=== PATIENT | female | born 1965 | race Caucasian/White ===

== ENCOUNTER 2019-10-26 14:02 | Outpatient (CLI) | payer OTHER, SELFPAY ==
--- NOTE | ~2019-10-26 | CT_ITS ---
EXAMINATION: CT abdomen pelvis w con DATE: 10/26/2019 14:33 INDICATION: Abdominal pain. Splenic laceration. TECHNIQUE: Computed tomography (CT) of the abdomen and pelvis was performed with 100 mL Omnipaque-350 intravenous contrast. Automated exposure control and iterative reconstruction technique were employe d. The dose-length product was 372.68 mGy-cm. COMPARISON: 08/30/2008 FINDINGS: Mild discoid atelectasis at the right lower lobe. Heart size is normal. No pericardial or pleural eff usion. Liver, gallbladder, pancreas, bilateral adrenal glands and kidneys are normal. There is a large splenic subcapsular hematoma which measures 11.5 x 11.5 x 7.3 cm there are couple la cerations along the spleen the more anterior measuring 2.0 cm in depth and the posterior laceration m easuring 1.4 cm in depth consistent with provided history of prior grade 2 splenic injury which was r eportedly treated with splenic artery branch embolization. The spleen enhances homogeneously with no evident active contrast extravasation identified. There is an approximately 7.9 x 6.2 x 5.3 cm collec tion of hemoperitoneum in the posterior pelvis. No abnormal bowel wall thickening or obstruction. Appendix is normal. Bladder is normal. The uterus i s not identified and has likely been surgically resected. No pathologically enlarged abdominal or pel melissa lymphadenopathy. Mild lumbar levocurvature with mild to moderate spondylosis. IMPRESSION: 1. Grade 2 splenic injury with a couple lacerations measuring up to 2 cm in depth and large subcapsul ar hematoma but without evident active extravasation. 2. Small amount of likely secondary hemoperitoneum. 3. Dr. Milan discussed these findings with Dr. Bettie Richardson at 2:40 PM. Reviewed, dictated and finalized at location A. IMPRESSION: 1. Grade 2 splenic injury with a couple lacerations measuring up to 2 cm in dep th and large subcapsular hematoma but without evident active extravasation. 2. Small amount of likely secondary hemoperitoneum. 3. Dr. Milan discussed these findings with Dr. Bettie Richardson at 2:40 PM.
== END 2019-10-26 14:03 | disposition home or self-care (01) ==
PROVIDERS: PCP Family Medicine; Visit Provider Family Medicine
DX: S36.039A Unspecified laceration of spleen, initial encounter (principal); R10.9 Unspecified abdominal pain
CPT/HCPCS: 74177; Q9967

== ENCOUNTER 2020-06-01 10:12 | Outpatient (CLI) | payer OTHER, SELFPAY ==
[2020-06-01 10:44] LABS: Basophils Absolute Auto 0.1 K/mm3 (0.0-0.1); Basophils Percent Auto 0.7 % (0.2-1.2); Eosinophils Absolute Auto 0.1 K/mm3 (0-0.3); Eosinophils Percent Auto 1.1 % (0-4.4); Hematocrit 47.6 % (37.0-47.0); Hemoglobin 15.6 g/dL (12.0-15.0); Lymphocytes Absolute Auto 2.78 K/mm3 (0.9-3.2); Lymphocytes Percent Auto 39.9 % (18.3-44.2); Mean Corpuscular HGB Conc 32.8 g/dl (32-36); Mean Corpuscular Hemoglobin 30.2 pg (26-34); Mean Corpuscular Volume 92.2 fl (80-100); Mean Platelet Volume 9.6 fl (7.4-10.4); Monocytes Absolute Auto 0.3 K/mm3 (0.1-0.6); Monocytes Percent Auto 4.7 % (2.6-8.5); Neutrophils Absolute Auto 3.7 K/mm3 (1.3-6.7); Neutrophils Percent Auto 53.6 % (45.5-73.1); Platelet Count Result 249 k/mm3 (150-375); Red Blood Count 5.16 M/mm3 (4.2-5.4); Red Cell Distribution Width 13.5 % (11.5-14.5)
[2020-06-01 11:00] LABS: Alanine Aminotransferase 13 U/L (4-35); Albumin Level 4.1 g/dL (3.5-5.1); Alkaline Phosphatase 62 U/L (38-126); Anion Gap 2 mmol/L (8-16); Aspartate Amino Transferase 24 U/L (14-36); Bilirubin,Total 0.3 mg/dL (0.2-1.3); Blood Urea Nitrogen 12 mg/dL (7-17); Calcium 9.1 mg/dL (8.4-10.2); Carbon Dioxide 31 mmol/L (22-30); Chloride 106 mmol/L (98-107); Estimated Glomerular Filt Rate > 60; Glucose 99 mg/dL (65-105); Magnesium 1.9 mg/dL (1.6-2.3); Phosphorus 3.8 mg/dL (2.5-4.5); Potassium 4.7 mmol/L (3.4-5.0); Sodium 139 mmol/L (137-145)
== END 2020-06-01 10:13 | disposition home or self-care (01) ==
PROVIDERS: Family Provider Family Medicine; PCP Family Medicine; Visit Provider Nurse Practitioner
DX: R00.2 Palpitations (principal)
CPT/HCPCS: 36415; 80053; 83735; 84100; 85025

== ENCOUNTER 2020-08-06 13:23 | Outpatient (CLI) | payer OTHER, SELFPAY ==
--- NOTE | 2020-08-06 13:27 | ECHO_ITS ---
Patient Info Name: Lili Rivera Age: 54 years : 1965 Gender: Female Ht: 70 in Wt: 165 lbs BSA: 1.93 m2 HR: 70 bpm BP: 111 / 73 mmHg Technical Quality: Good Exam Date: 08/06/2020 1:39 PM Exam Location: [facility] Patient Status: Outpatient Admit Date: 08/06/2020 Staff Ordering Physician: Christ Choi DO Take Away Man: Dhara Reyna RDCS Attending Provider: Christ Choi DO Referring Physician: Jimbo RIVERA; Exam Type: CA echo doppler color flow Study Info Indications R06.00 - Dyspnea, unspecified Complete two-dimentional, color flow and Doppler transthoracic echocardiogram is performed with agitated saline and with contrast to opacify the left ventricle and to improve the delineation of the left ventricle endocardial borders. Summary 1. Left ventricular chamber dimension is normal. 2. Left ventricular systolic function is normal, estimated at 60-65%. 3. The left ventricular diastolic function is grade II diastolic dysfunction. 4. E/e' 7 is not elevated. 5. Global longitudinal strain is normal at -19.9%. 6. No pulmonary hypertension, estimated pulmonary arterial systolic pressure is 17 mmHg. 7. There is trace pulmonic regurgitation. Left Ventricle E/e' 7 is not elevated. Global longitudinal strain is normal at -19.9%. Left ventricular chamber dimension is normal. Left ventricular systolic function is normal, estimated at 60-65%. The left ventricular diastolic function is grade II diastolic dysfunction. Right Ventricle Right ventricular chamber dimension is normal. Right ventricular systolic function is normal. Left Atria Left atrial chamber dimension is normal. Right Atria Right atrial chamber dimension is normal. Aortic Valve The aortic valve is trileaflet. There is no aortic valve stenosis. There is no aortic valve regurgitation. Pulmonic Valve There is trace pulmonic regurgitation. Mitral Valve There is no mitral valve stenosis. There is no mitral valve regurgitation. Tricuspid Valve There is no tricuspid valve regurgitation. No pulmonary hypertension, estimated pulmonary arterial systolic pressure is 17 mmHg. Pericardium/Pleural There is no pericardial effusion. Inferior Vena Cava Normal inferior vena cava with >50% collapse upon inspiration consistent with normal right atrial pressure, 5 mmHg. Aorta The aortic root size at the sinus of Valsalva is normal. Left Ventricular Outflow Tract Name Value Normal LVOT 2D LVOT Diameter 2.0 cm LVOT Doppler LVOT Peak Gradient 5 mmHg LVOT Mean Gradient 3 mmHg LVOT VTI 23 cm LVOT VTI/AV VTI Ratio 0.9 LVOT Stroke Volume 68 ml LVOT CO 5.2 l/min LVOT CI 2.7 l/min/m2 Pulmonic Valve Name Value Normal RVOT Doppler
== END 2020-08-06 13:24 | disposition home or self-care (01) ==
LOC: ANHCARD 13:25
PROVIDERS: PCP Family Medicine; Visit Provider Internal Medicine Cardiovascular Disease
DX: R06.00 Dyspnea, unspecified (principal)
CPT/HCPCS: 93306

== ENCOUNTER 2021-01-16 14:48 | Outpatient (CLI) | payer OTHER, SELFPAY ==
--- NOTE | ~2021-01-16 | MM_ITS ---
EXAMINATION: MM screening danuta BI w daniel HISTORY: Screening TECHNIQUE: Craniocaudal and mediolateral oblique 3-D tomosynthesis images were obtained and synthetic 2-D images were generated. CAD analysis was submitted and interpreted. COMPARISON: No prior mammogram is available for comparison at this institution. BREAST PARENCHYMAL COMPOSITION: There are scattered areas of fibroglandular density. FINDINGS: There is no evidence of suspicious mass, calcification, or architectural distortion to sugg est malignancy in either breast. There has been no suspicious interval change. IMPRESSION: 1. No mammographic evidence of malignancy. 2. Recommend routine screening mammography in one year. BI-RADS Category 1: Negative Reviewed, dictated and finalized at location A.
== END 2021-01-16 14:49 | disposition home or self-care (01) ==
LOC: ANHIMG 14:49
PROVIDERS: PCP Family Medicine; Visit Provider Family Medicine
DX: Z12.31 Encounter for screening mammogram for malignant neoplasm of breast (principal)
CPT/HCPCS: 77063; 77067

== ENCOUNTER 2021-09-26 12:35 | Outpatient (CLI) | payer OTHER, SELFPAY ==
--- NOTE | ~2021-09-26 | XR_ITS ---
EXAMINATION: XR shoulder LT min 2V DATE: 09/26/2021 13:07 INDICATION: Left shoulder pain. TECHNIQUE: 4 views of left shoulder were obtained. COMPARISON: None. FINDINGS: Bone alignment is normal. No fracture. There is mild osteoarthritis of glenohumeral joint a nd acromioclavicular joint characterized by tiny osteophytes. IMPRESSION: 1. Mild polyarticular osteoarthritis. Reviewed, dictated and finalized at location A.
[2021-09-26 13:36] LABS: Basophils Percent Auto 0.6 % (0.2-1.2); Eosinophils Absolute Auto 0.1 K/mm3 (0-0.3); Hematocrit 50.8 % (37.0-47.0); Immature Granulocyte Absolute 0.01 K/mm3 (0.00-0.031); Immature Granulocyte Percent A 0.1 % (0-0.5); Lymphocytes Absolute Auto 2.78 K/mm3 (0.9-3.2); Lymphocytes Percent Auto 38.6 % (18.3-44.2); Mean Corpuscular HGB Conc 33.5 g/dl (32-36); Mean Corpuscular Hemoglobin 30.9 pg (26-34); Mean Corpuscular Volume 92.4 fl (80-100); Mean Platelet Volume 9.6 fl (7.4-10.4); Monocytes Absolute Auto 0.4 K/mm3 (0.1-0.6); Monocytes Percent Auto 4.9 % (2.6-8.5); Neutrophils Percent Auto 54.8 % (45.5-73.1); Platelet Count Result 244 k/mm3 (150-375); Red Cell Distribution Width 13.3 % (11.5-14.5); White Blood Count 7.2 K/mm3 (4.5-10.0)
[2021-09-26 13:51] LABS: Alanine Aminotransferase 15 U/L (6-35); Albumin Level 4.4 g/dL (3.5-5.1); Alkaline Phosphatase 58 U/L (38-126); Anion Gap 4 mmol/L (8-16); Aspartate Amino Transferase 21 U/L (14-36); Bilirubin,Total 0.3 mg/dL (0.2-1.3); Blood Urea Nitrogen 10 mg/dL (7-17); Calcium 8.9 mg/dL (8.4-10.2); Carbon Dioxide 30 mmol/L (22-30); Chloride 104 mmol/L (98-107); Estimated Glomerular Filt Rate > 60; Glucose 103 mg/dL (65-110); HDL Direct 54 mg/dL; Potassium 3.8 mmol/L (3.4-5.0); Sodium 138 mmol/L (137-145); Triglycerides 430 mg/dL (<150); Triglycerides 437 mg/dL (<150)
[2021-09-26 14:00] LABS: LDL Cholesterol Direct 274 mg/dL
[2021-09-26 14:01] LABS: LDL Cholesterol Direct 268 mg/dL
[2021-09-26 14:14] LABS: Hemoglobin A1C 5.5 % (<5.7)
[2021-09-26 14:17] LABS: Microalbumin Urine Random 23.2 mg/L (0-16.7)
[2021-09-26 14:18] LABS: Creatinine Urine 314.9 mg/dL; MALB Creatinine Ratio 7.4 mg/g (0-30)
[2021-09-26 14:19] LABS: Total Triiodothyronine (T3) 1.09 NG/ML (0.97-1.69)
[2021-09-26 14:55] LABS: Free T4 Free Thyroxine 1.04 ng/mL (0.78-2.19); Vitamin D 25 Hydroxy 26.6 ng/mL
[2021-09-26 16:01] LABS: Cholesterol 458 mg/dL (0-200)
[2021-09-26 17:57] LABS: Cholesterol 441 mg/dL (0-200)
== END 2021-09-26 12:36 | disposition home or self-care (01) ==
PROVIDERS: PCP Family Medicine; Visit Provider Internal Medicine Cardiovascular Disease
DX: M19.012 Primary osteoarthritis, left shoulder (principal); M75.100 Unspecified rotator cuff tear or rupture of unspecified shoulder, not specified as traumatic; K21.9 Gastro-esophageal reflux disease without esophagitis; J44.9 Chronic obstructive pulmonary disease, unspecified; K90.0 Celiac disease; Z00.00 Encounter for general adult medical examination without abnormal findings; Z13.0 Encounter for screening for diseases of the blood and blood-forming organs and certain disorders involving the immune mechanism; Z13.6 Encounter for screening for cardiovascular disorders; Z13.220 Encounter for screening for lipoid disorders; Z13.29 Encounter for screening for other suspected endocrine disorder; Z13.1 Encounter for screening for diabetes mellitus; R80.9 Proteinuria, unspecified; E55.9 Vitamin D deficiency, unspecified
CPT/HCPCS: 36415; 73030; 80053; 80061; 82043; 82306; 83036; 84439; 84443; 84480; 85025

== ENCOUNTER 2021-10-07 13:20 | Outpatient (CLI) | payer OTHER, SELFPAY ==
--- NOTE | ~2021-10-07 | CT_ITS ---
CT OF LEFT SHOULDER EXAMINATION: CT shoulder LT wo con DATE: 10/07/2021 13:45 INDICATION: Left shoulder pain/injury. TECHNIQUE: Computed tomography (CT) of the left shoulder was performed without intravenous contrast. Automated exposure control and iterative reconstruction technique were employed. The dose-length prod uct was 369.16 mGy-cm. COMPARISON: X-ray left shoulder 09/26/2021 FINDINGS: Limitations: None Bones: No fracture or dislocation. Glenohumeral joint space narrowing with subchondral sclerosis. Mil d superior migration of the humeral head as can be seen with rotator cuff pathology. Slightly curved acromial undersurface (type II). Benign humeral head bone island. Soft Tissues:The soft tissues appear within normal limits. No evidence of mass or fluid collection. Fluid: No significant fluid within the joint capsule or surrounding bursal spaces. IMPRESSION: Mild glenohumeral osteoarthritis. Superior humeral head migration suggests rotator cuff pathology. Reviewed, dictated and finalized at location K. IMPRESSION: Mild glenohumeral osteoarthritis. Superior humeral head migration suggests rota tor cuff pathology.
== END 2021-10-07 13:21 | disposition home or self-care (01) ==
LOC: ANHIMG 13:22
PROVIDERS: PCP Family Medicine; Visit Provider Nurse Practitioner Adult Health
DX: M19.012 Primary osteoarthritis, left shoulder (principal)
CPT/HCPCS: 73200

== ENCOUNTER 2021-11-26 16:24 | Outpatient (CLI) | payer OTHER, SELFPAY ==
--- NOTE | ~2021-11-26 | MR_ITS ---
EXAMINATION: MR shoulder LT wo con DATE: 11/26/2021 18:03 INDICATION: Left shoulder pain TECHNIQUE: Magnetic resonance imaging (MRI) of the left shoulder was performed without intravenous co ntrast. Sequences included axial PD-weighted FS FSE, coronal oblique PD-weighted FS FSE, coronal obli que T2-weighted FS FSE, sagittal PD-weighted FS FSE, and sagittal T1-weighted SE. COMPARISON: Left shoulder CT dated 10/07/2021 FINDINGS: Coracoacromial arch: The acromion undersurface is curved in morphology (type II). The coracoacromial ligament is normal. M ild acromioclavicular osteoarthritis. Rotator cuff: Mild tendinopathy of the distal supraspinatus tendon without tear. The infraspinatus, teres minor and subscapularis tendons are normal. Normal rotator cuff muscle bulk and signal. Biceps tendon, glenoid labrum and glenohumeral cartilage: Long head of the biceps tendon is normal. Glenoid labrum is normal. There is partial thickness cartil age loss with smooth chondral surface involving the cephalad half of the glenoid. Humeral head cartil age is normal. Fluid: Physiologic amount of fluid in the glenohumeral joint and biceps tendon sheath. No loose osteochondr al bodies. No abnormal fluid signal in the subacromial/subdeltoid bursa to suggest bursitis. Bones: Small low signal intensity sclerotic bone island at the humeral head. Marrow signal is otherwise norm al. No fracture or pathologic marrow replacing process. IMPRESSION: 1. Mild supraspinatus tendinopathy without tear. 2. Mild left glenohumeral and acromioclavicular osteoarthritis. Reviewed, dictated and finalized at location A.
== END 2021-11-26 16:25 | disposition home or self-care (01) ==
PROVIDERS: PCP Family Medicine; Visit Provider Nurse Practitioner Adult Health
DX: M75.102 Unspecified rotator cuff tear or rupture of left shoulder, not specified as traumatic (principal); M19.012 Primary osteoarthritis, left shoulder
CPT/HCPCS: 73221

== ENCOUNTER 2022-06-11 16:32 | Emergency (ER) | payer OTHER, SELFPAY ==
[2022-06-11 16:36] VITALS: BP 108/62; PULSE 88; RESP 20; TEMP 36.6; O2SAT 95
--- NOTE | 2022-06-11 16:36 | ED.SKABFB ---
HPI - Skin/Abscess/Foreign Bdy General Chief complaint: Skin/Abscess/Foreign Body Stated complaint: Skin Problem Time Seen by Provider: 06/11/22 16:42 Source: patient and RN notes reviewed Mode of arrival: ambulatory Limitations: no limitations History of Present Illness HPI narrative: 56-year-old female presents concern for painful in itchy rash that starts on her low back and goes around her flank. She reports she noticed the rash yesterday. Reports there is some scabbing that had some clear drainage. She denies any other area rash. MD complaint: rash Related Data Home Medications Medication Instructions Recorded Confirmed albuterol sulfate 90 mcg/actuation 1 puff inhalation Q4H PRN Dyspnea 07/02/20 06/11/22 aerosol inhaler melatonin 10 mg capsule 10 mg PO QHS 07/02/20 02/07/22 pantoprazole 40 mg tablet,delayed 40 mg PO QAM 07/02/20 06/11/22 release sertraline 50 mg tablet (Zoloft) 100 mg PO DAILY 07/02/20 06/11/22 trazodone 150 mg tablet 150 mg PO QHS PRN Insomnia 07/02/20 06/11/22 diltiazem HCl 120 mg 100 mg PO DAILY 02/07/22 06/11/22 capsule,extended release 24 hr (Cartia XT) Allergies Allergy/AdvReac Type Severity Reaction Status Date / Time No Known Allergies Allergy Verified 06/11/22 16:37 Review of Systems Review of Systems: CONSTITUTIONAL: Denies malaise, chills, sweats, or fever. EYES: Denies redness, or discharge. ENT: Denies rhinorrhea, congestion, swollen lips, swollen tongue CARDIOVASCULAR: Denies chest pain, palpitations, or edema. RESPIRATORY: Denies cough or dyspnea. GASTROINTESTINAL: Denies abdominal pain, nausea, vomiting SKIN: Reports painful in itchy rash on her left flank MUSCULOSKELETAL: Denies joint pain or myalgia. NEUROLOGIC: Denies headache. All systems reviewed & are unremarkable except as noted in HPI and below PMFSH Past Medical History Medical History Acute sinusitis Anxiety disorder Asthma Embolism of splenic artery GERD (gastroesophageal reflux disease) Injury of chest wall Palpitation Pure hypercholesterolemia Social History Social History Smoking status: Current every day smoker Comments At time of signature, agree with nursing past medical, surgical, social and family history. There is no relevant family history pertinent to the presenting complaint Exam Narrative: GENERAL: Well-appearing, well-nourished, and in no acute distress. HEAD: Normocephalic, atraumatic. EYES: PERRLA, conjunctivae clear, and EOMI. ENT: Mucous membranes moist. Oropharynx without edema, erythema or lesions. NECK: Supple. No lymphadenopathy CHEST: Clear to auscultation. No respiratory distress. HEART: Regular rate and rhythm. SKIN: Warm, dry. Zosteriform rash noted to the left low back spreading around the flank NEURO: Alert and oriented x3. PSYCH: Normal mood and affect Course Course Emergency Course: Patient is aware of diagnosis, understands and agrees to treatment plan. Anticipatory guidance given. Patient agrees to follow-up as directed and is aware of reasons to seek care at the emergency department. Portions of this record may have been created with voice recognition software Level of Care: Express Care Visit Vital Signs Vital signs: Reviewed. MDM - Skin/Abscess/Foreign Bdy MDM Narrative Medical decision making narrative: Does not appear at this time to be erythema multiforme, bullous, SJS, TEN; no evidence at this time to suggest RMSF, endocarditis or Lyme disease; patient looks well, nontoxic and is tolerating oral intake; no neurologic signs or symptoms; no headache, photophobia or neck pain; afebrile; appropriate for initial outpatient treatment; discussed the importance of follow-up, patient agrees; question, viral exanthema, contact dermatitis, allergic dermatitis, eczema, urticaria, shingles. No soft palate or uvula edema, no tongue, lip ed
== END 2022-06-11 16:54 | disposition home or self-care (01) ==
PROVIDERS: Emergency Provider Nurse Practitioner; PCP Family Medicine
DX: B02.9 Zoster without complications (principal); F17.200 Nicotine dependence, unspecified, uncomplicated
CPT/HCPCS: 99213; G0463

== ENCOUNTER 2023-06-02 13:16 | Emergency (ER) | payer OTHER, SELFPAY ==
--- NOTE | ~2023-06-02 | XR_ITS ---
XR foot LT min 3V DATE: 06/02/2023 14:12 INDICATION: Fall one week ago. Lateral pain. TECHNIQUE: 4 views COMPARISON: None FINDINGS: Slight plantar calcaneal enthesopathy. No fracture, dislocation, periosteal reaction or bone destruction. Joint spaces are relatively preser tim. No erosive change. IMPRESSION: Slight plantar calcaneal enthesopathy Reviewed, dictated and finalized at location L. [employer]
--- NOTE | ~2023-06-02 | XR_ITS ---
XR ankle LT min 3V DATE: 06/02/2023 14:11 INDICATION: Fall one week ago. Lateral ankle and foot pain TECHNIQUE: 4 views COMPARISON: None FINDINGS: Slight plantar calcaneal enthesopathy. No fracture or dislocation of the ankle or disruption of the ankle mortise. No periosteal reaction or bone destruction. IMPRESSION: Slight plantar calcaneal enthesopathy Reviewed, dictated and finalized at location L. RANGER
[2023-06-02 13:33] VITALS: BP 128/75; PULSE 78; RESP 20; TEMP 36.6; O2SAT 96
--- NOTE | 2023-06-02 14:28 | ED.LOWEXIN ---
HPI - Extremity Injury (Lower) General Chief Complaint: Extremity Injury, Lower Stated Complaint: left foot injury Time Seen by Provider: 06/02/23 14:28 Source: patient Mode of arrival: ambulatory Limitations: no limitations History of Present Illness HPI Narrative: Patient is a 57-year-old female who presents the ED with report of left foot and ankle pain. Patient reports she tripped over her dog's chain 1 week ago, injuring her L foot and ankle. She was seen at [facility] ED afterwards and had negative XRs. Placed in a walking boot. she states she was told there may be a small fracture that they were unable to see due to the swelling. She complains of persistent pain and swelling, difficulty ambulating, ecchymosis into toes. Denies any new injury. No other injuries from the fall. Denies numbness or tingling. She has not followed up with Orthopedics. Wanting repeat XRays. Related Data Home Medications Medication Instructions Recorded Confirmed albuterol sulfate 90 mcg/actuation 1 puff inhalation Q4H PRN Dyspnea 07/02/20 06/11/22 aerosol inhaler melatonin 10 mg capsule 10 mg PO QHS 07/02/20 02/07/22 pantoprazole 40 mg tablet,delayed 40 mg PO QAM 07/02/20 06/11/22 release sertraline 50 mg tablet (Zoloft) 100 mg PO DAILY 07/02/20 06/11/22 trazodone 150 mg tablet 150 mg PO QHS PRN Insomnia 07/02/20 06/11/22 diltiazem HCl 120 mg 100 mg PO DAILY 02/07/22 06/11/22 capsule,extended release 24 hr (Cartia XT) Allergies Allergy/AdvReac Type Severity Reaction Status Date / Time No Known Allergies Allergy Verified 06/11/22 16:37 Review of Systems Review of Systems: CONSTITUTIONAL: Denies fever, chills, or sweats. MUSCULOSKELETAL: See HPI. NEUROLOGIC: Denies headache, dizziness, numbness, or weakness. All systems reviewed & are unremarkable except as noted in HPI and below PMFSH Past Medical History Medical History Acute sinusitis Anxiety disorder Asthma Embolism of splenic artery GERD (gastroesophageal reflux disease) Injury of chest wall Palpitation Pure hypercholesterolemia Social History Social History Smoking status: Current every day smoker Exam Narrative: GENERAL: Well appearing, well-nourished, non-toxic, in no acute distress. HEAD: Normocephalic, atraumatic. RESPIRATORY: Airway patent, respirations nonlabored. CARDIOVASCULAR: Regular rate and rhythm. Pedal pulses 2+ MUSCULOSKELETAL: Moves all extremities. No gross deformities. TTP over inferior and posterior lateral malleoli of left ankle. Mild swelling noted diffusely throughout left ankle joint and into dorsal foot. Small amount of light purple and yellow ecchymosis to 2nd/3rd toes, nontender throughout toes or dorsal foot. sensation intact throughout foot ankle. Capillary refill intact. SKIN: Warm, dry, normal color. NEURO: A&O X3. Speech clear. Cranial nerves II-XII grossly intact. No ataxic movements. PSYCHIATRIC: Appropriate mood and affect. Normal interaction. Course Vital Signs Vital signs: Vital Signs Temperature 97.9 F 06/02/23 13:33 Pulse Rate 78 06/02/23 13:33 Respiratory Rate 20 06/02/23 13:33 Blood Pressure 128/75 06/02/23 13:33 Pulse Oximetry 96 06/02/23 13:33 Oxygen Delivery Room Air 06/02/23 13:33 Temperature 97.9 F 06/02/23 13:33 Pulse Rate 78 06/02/23 13:33 Respiratory Rate 20 06/02/23 13:33 Blood Pressure 128/75 06/02/23 13:33 Pulse Oximetry 96 06/02/23 13:33 Oxygen Delivery Room Air 06/02/23 13:33 MDM - Extremity Injury (Lower) MDM Narrative Medical decision making narrative: Patient?s injury is consistent with musculoskeletal etiology. No signs of neurologic or vascular compromise on physical examination. Compartments are soft without signs of compartment syndrome. Repeat x-rays today without evidence for fracture. Discu
== END 2023-06-02 14:46 | disposition home or self-care (01) ==
LOC: ANHED 14:40
PROVIDERS: Emergency Provider Physician Assistant; PCP Family Medicine
DX: S93.402A Sprain of unspecified ligament of left ankle, initial encounter (principal); F41.9 Anxiety disorder, unspecified; J45.909 Unspecified asthma, uncomplicated; K21.9 Gastro-esophageal reflux disease without esophagitis; E78.5 Hyperlipidemia, unspecified; W01.0XXA Fall on same level from slipping, tripping and stumbling without subsequent striking against object, initial encounter
CPT/HCPCS: 73610; 73630; 99283